=== PATIENT | male | born 2000 | race Caucasian/White ===

== ENCOUNTER → 2022-09-21 | Outpatient (CLI) | payer BC ==
--- NOTE | 2022-09-21 16:46 | CA ---
Transthoracic Echo Report Name: Yandel Gonsales Age: 22 Gender: M : 2000 Exam Date: 09/21/2022 13:46 Exam Location: [facility] Ht (in): 72 Wt (lb): 215 Ordering Physician: Monie Deras MD Attending/Referring Phys: Insurance Adviser Jacquelin Russell, CANDI Procedure CPT: Indications: Z82.79 fam hx bicuspid valve Cardiac Hx: Technical Quality: Good Contrast 1: N/A Total Dose (mL): Contrast 2: Total Dose (mL): MEASUREMENTS (Male / Female) Normal Values 2D ECHO LV Diastolic Diameter PLAX 4.8 cm 4.2 - 5.9 / 3.9 - 5.3 cm LV Systolic Diameter PLAX 2.9 cm IVS Diastolic Thickness 1.0 cm 0.6 - 1.0 / 0.6 - 0.9 cm LVPW Diastolic Thickness 1.1 cm 0.6 - 1.0 / 0.6 - 0.9 cm LV Relative Wall Thickness 0.4 RV Internal Dim ED PLAX 2.6 cm LA Systolic Diameter LX 3.3 cm 3.0 - 4.0 / 2.7 - 3.8 cm M-MODE Aortic Root Diameter MM 3.1 cm LA Systolic Diameter MM 3.6 cm LA Ao Ratio MM 1.1 MV E Point Septal Separation 0.3 cm AV Cusp Separation MM 1.8 cm DOPPLER MV Area PHT 3.7 cm??? Mitral E Point Velocity 88.8 cm/s Mitral A Point Velocity 69.0 cm/s Mitral E to A Ratio 1.3 MV Deceleration Time 205.9 ms MV E' Velocity 15.0 cm/s Mitral E to MV E' Ratio 5.9 TR Peak Velocity 236.7 cm/s TR Peak Gradient 22.4 mmHg Right Ventricular Systolic Press 26.7 mmHg FINDINGS Left Ventricle Normal left ventricular size, wall thickness, systolic function with no obvious regional wall motion abnormalities. Left ventricular ejection fraction is estimated at 60%. Right Ventricle The right ventricle is normal in size and function. Right Atrium The right atrium is normal in size. Left Atrium The left atrium is normal in size. Mitral Valve Structurally normal mitral valve without significant stenosis or prolapse. There is mild mitral regurgitation. Aortic Valve Structurally normal aortic valve without significant sclerosis or stenosis. There is no aortic regurgitation. Tricuspid Valve Structurally normal tricuspid valve without significant stenosis. Pulmonary artery systolic pressure is normal. Pulmonic Valve Structurally normal pulmonic valve without significant stenosis. There is no pulmonic regurgitation. Pericardium Normal pericardium without effusion. Aorta Normal aortic root dimension. CONCLUSIONS Left ventricular ejection fraction 60% Mild mitral regurgitation Tricuspid aortic valve with no aortic stenosis or aortic regurgitation RVSP 26 No pericardial effusion Previewed by: Dr. Rd Johns DO (Electronically Signed) Final Date: 21 September 2022 16:45
== END | disposition home or self-care (01) ==
LOC: RADECHMAIN 13:17
PROVIDERS: ATTEND Family Medicine
DX: I34.0 Nonrheumatic mitral (valve) insufficiency (principal); Z82.79 Family history of other congenital malformations, deformations and chromosomal abnormalities
CPT/HCPCS: 93306